=== PATIENT | female | born 1935 | race Caucasian/White ===

== ENCOUNTER 2017-03-04 13:38 | Outpatient (CLI) | payer OTHER ==
[~2017-03-04 13:38] MED LIST: GABA-531 PO; LISI-652 PO; LOVA20TA2 PO
== END 2017-03-04 18:54 | disposition home or self-care (01) ==
LOC: SMA 13:38
PROVIDERS: ATTEND Family Medicine
DX: Z12.31 Encounter for screening mammogram for malignant neoplasm of breast (principal)
CPT/HCPCS: 77067

== ENCOUNTER 2018-07-07 10:14 | Outpatient (CLI) | payer OTHER | END 2018-07-07 21:16 | disposition home or self-care (01) | LOC: SMA 10:14 | PROVIDERS: ATTEND Family Medicine | DX: Z12.31 Encounter for screening mammogram for malignant neoplasm of breast (principal) | CPT/HCPCS: 77067 ==

== ENCOUNTER 2018-12-13 10:51 | Emergency (ER) | payer OTHER, MEDICAID ==
[~2018-12-13] VITALS: Ht 162.6 cm; Wt 74.4 kg
[2018-12-13 11:02] VITALS: BP_SYST 146
--- NOTE | 2018-12-13 11:10 | NUR ---
Patient to ER bed 5 to gown for evaluation, equipment monitor phototypesetting. Side rails up. Report given to Yuliana AMEZQUITA.
--- NOTE | 2018-12-13 11:40 | NUR ---
Note undone in EDM - 12/13/18 at 1159 by SDEDTD Patient presented to ER with right side nek & shoulder pain. Patient A&Ox4, ambulatory to ER, afebrile, skin pink & warm, cap refil <3sec, pain 10/09 to neck, denies N/V/D. Patient states Thursday she had near syncope episode causing fall, denies head trauma, denies KO. Patient staes she has treated at home with Naprosyn OTC for arthritis pain.
--- NOTE | 2018-12-13 11:40 | NUR ---
Patient presented to ER with right side neck & shoulder pain. Patient A&Ox4, ambulatory to ER, afebrile, skin pink & warm, cap refil <3sec, pain 10/09 to neck, denies N/V/D. Patient states Thursday she had near syncope episode causing fall, denies head trauma, denies KO. Patient staes she has treated at home with Naprosyn OTC for arthritis pain.
--- NOTE | 2018-12-13 11:45 | NUR ---
ER Dr. Camp at bedside examining patient.
[2018-12-13] MEDS ORDERED: HYDROcodone/ACETAMIN 5-325 MG TAB (NORCO/ VICODIN) PO ONE (12:00)
[2018-12-13] MEDS ORDERED: IBUPROFEN 600 MG TABLET PO ONE (12:00)
[2018-12-13 12:28] LABS: BASOPHILS # (AUTO) 0.1 K/uL (0.0-0.2); BASOPHILS % (AUTO) 1.1 % (0.0-2.0); EOSINOPHILS # (AUTO) 0.2 K/uL (0.0-0.4); EOSINOPHILS % (AUTO) 3.8 % (0.0-4.0); HEMATOCRIT 42.5 % (36-48); HEMOGLOBIN 14.3 g/dL (12.0-16.0); LYMPHOCYTES # (AUTO) 1.7 K/uL (1.0-5.5); MEAN CORPUSCULAR HEMOGLOBIN 30 pg (27-31); MEAN CORPUSCULAR HGB CONC 34 % (32-36); MEAN CORPUSCULAR VOLUME 90 fL (79.0-98.0); MONOCYTES # (AUTO) 0.4 K/uL (0.0-1.0); MONOCYTES % (AUTO) 8.5 % (1.7-9.3); NEUTROPHILS # (AUTO) 2.8 K/uL (1.8-7.7); NEUTROPHILS % (AUTO) 53.6 % (40.0-70.0); PLATELET COUNT (AUTO) 221 K/uL (130-430); RED BLOOD CELL COUNT(AUTO) 4.72 MIL/uL (4.2-6.2); RED CELL DISTRIBUTION WIDTH 13.2 % (9.0-15.0); WHITE BLOOD COUNT (AUTO) 5.2 K/uL (4.8-10.8)
[2018-12-13 12:44] LABS: PROTHROMBIN TIME 9.9 SECS (9.5-12.5)
[2018-12-13 12:48] LABS: ANION GAP 5 (5-15); CHLORIDE 107 mmol/L (98-107); CREATININE 0.75 mg/dL (0.55-1.30); GLUCOSE 98 mg/dL (70-99); POTASSIUM 4.1 mmol/L (3.5-5.1); SODIUM SERUM 141 mmol/L (136-145); UREA NITROGEN, BLOOD 17 mg/dL (8-21)
[2018-12-13 12:53] LABS: ALANINE AMINOTRANSFERASE 19 U/L (12-78); ALBUMIN 4.2 g/dL (3.4-4.8); ASPARTATE AMINOTRANSFERASE 17 U/L (10-37); TOTAL BILIRUBIN 0.5 mg/dL (0.0-1.0)
[2018-12-13 13:04] VITALS: BP_SYST 138
--- NOTE | 2018-12-13 13:05 | NUR ---
Patient given written and verbal discharge instructions and verbalizes understanding. ER MD discussed with patient the results and treatment provided. Patient in stable condition. ID arm band removed. Rx of Motrin and Soma given. Patient educated on pain management and to follow up with PMD. Pain Scale 2/10 tolerable for pt. Opportunity for questions provided and answered. Medication side effect fact sheet provided.
== END 2018-12-13 13:04 | disposition home or self-care (01) ==
LOC: SED 10:51
DX: S13.4XXA Sprain of ligaments of cervical spine, initial encounter (principal); R51 Headache; K21.9 Gastro-esophageal reflux disease without esophagitis; I10 Essential (primary) hypertension; E03.9 Hypothyroidism, unspecified; E78.00 Pure hypercholesterolemia, unspecified; Z90.49 Acquired absence of other specified parts of digestive tract; Z90.710 Acquired absence of both cervix and uterus; Z88.8 Allergy status to other drugs, medicaments and biological substances; W19.XXXA Unspecified fall, initial encounter; Y93.89 Activity, other specified; Y92.89 Other specified places as the place of occurrence of the external cause; Y99.8 Other external cause status
CPT/HCPCS: 36415; 72125-TC; 80053; 85025; 85610-TC; 85730-TC; 99284

== ENCOUNTER 2019-01-21 10:07 | Emergency (ER) | payer OTHER, MEDICAID ==
[~2019-01-21] VITALS: Ht 160 cm; Wt 73.5 kg
[2019-01-21 10:07] VITALS: BP_SYST 142
[2019-01-21] MEDS ORDERED: AMOXICILLIN/CLAVULANATE POTASSIUM 875 MG TABLET PO ONE (10:45)
[2019-01-21] MEDS ORDERED: ALBUTEROL SULFATE 0.083% 2.5 MG/3 ML VIAL.NEB INH ONE (10:45)
[2019-01-21 11:35] VITALS: BP_SYST 142
== END 2019-01-21 11:33 | disposition home or self-care (01) ==
LOC: SED 10:07
DX: J20.9 Acute bronchitis, unspecified (principal); I10 Essential (primary) hypertension; K21.9 Gastro-esophageal reflux disease without esophagitis; Z90.49 Acquired absence of other specified parts of digestive tract; Z88.8 Allergy status to other drugs, medicaments and biological substances; Z79.899 Other long term (current) drug therapy
CPT/HCPCS: 71045; 94640; 99283; J7613

== ENCOUNTER 2023-10-24 14:02 | Emergency (ER) | payer OTHER, MEDICAID ==
[~2023-10-24] VITALS: Ht 157.5 cm; Wt 72.1 kg
[~2023-10-24 14:02] MED LIST changes: -GABA-531 PO; -LISI-652 PO; +LISI20TA30 PO; +PRO40 PO; +SYN50 PO
[2023-10-24 14:13] VITALS: BP_SYST 152; PULSE 73; RESP 16; TEMP 97.6; O2SAT 96
[2023-10-24 14:50] LABS: BILIRUBIN,URINE NEGATIVE (NEGATIVE); BLOOD, URINE 1+ (NEGATIVE); CLARITY/URINE CLEAR (CLEAR); COLOR,URINE YELLOW (YELLOW); GLUCOSE,URINE NEGATIVE (NEGATIVE); KETONES,URINE NEGATIVE (NEGATIVE); LEUKOCYTE ESTERASE ,URINE 1+ (NEGATIVE); NITRITE, URINE NEGATIVE (NEGATIVE); PROTEIN URINE NEGATIVE (NEGATIVE); UROBILINOGEN,URINE 0.2 (0.2-1.0)
[2023-10-24 15:02] LABS: BACTERIA,URINE RARE /HPF (None Seen)
[2023-10-24 16:17] LABS: BASOPHILS # (AUTO) 0.1 K/uL (0.0-0.2); BASOPHILS % (AUTO) 0.6 % (0.0-2.0); EOSINOPHILS # (AUTO) 0.1 K/uL (0.0-0.4); EOSINOPHILS % (AUTO) 1.1 % (0.0-4.0); HEMATOCRIT 41.2 % (36-48); HEMOGLOBIN 14.4 g/dL (12.0-16.0); LYMPHOCYTES # (AUTO) 1.7 K/uL (1.0-5.5); LYMPHOCYTES % (AUTO) 15.5 % (20.5-51.5); MEAN CORPUSCULAR HEMOGLOBIN 32 pg (27-31); MEAN CORPUSCULAR HGB CONC 35 % (32-36); MEAN CORPUSCULAR VOLUME 92 fL (79.0-98.0); MONOCYTES # (AUTO) 0.8 K/uL (0.0-1.0); MONOCYTES % (AUTO) 7.2 % (1.7-9.3); NEUTROPHILS # (AUTO) 8.1 K/uL (1.8-7.7); NEUTROPHILS % (AUTO) 75.6 % (40.0-70.0); PLATELET COUNT (AUTO) 286 K/uL (130-430); WHITE BLOOD COUNT (AUTO) 10.7 K/uL (4.8-10.8)
[2023-10-24 16:31] LABS: PROTHROMBIN TIME 10.4 SECS (9.5-12.5)
[2023-10-24 16:35] LABS: ALANINE AMINOTRANSFERASE 21 U/L (12-78); ALBUMIN 3.7 g/dL (3.4-4.8); ANION GAP 6 (5-15); ASPARTATE AMINOTRANSFERASE 17 U/L (10-37); CALCIUM 8.9 mg/dL (8.4-11.0); CARBON DIOXIDE 29 mmol/L (23-29); CHLORIDE 104 mmol/L (98-107); CREATININE 0.74 mg/dL (0.55-1.30); GLUCOSE 98 mg/dL (74-106); POTASSIUM 4.5 mmol/L (3.5-5.1); SODIUM SERUM 139 mmol/L (136-145); TOTAL BILIRUBIN 0.3 mg/dL (0.0-1.0); TOTAL PROTEIN, SERUM 7.6 g/dL (6.4-8.3); UREA NITROGEN, BLOOD 29 mg/dL (8-21)
[2023-10-24 16:45] LABS: AMYLASE 106 U/L (0-100); BILIRUBIN,DIRECT 0.1 mg/dL (0.0-0.3); LIPASE 55 U/L (16-77)
[2023-10-24] MEDS ORDERED: IBUP-2018 PO (17:18)
[2023-10-24 17:30] VITALS: BP_SYST 148; PULSE 73; O2SAT 97
== END 2023-10-24 17:30 | disposition home or self-care (01) ==
LOC: SED 14:02
DX: R10.30 Lower abdominal pain, unspecified (principal); K21.9 Gastro-esophageal reflux disease without esophagitis; I10 Essential (primary) hypertension; E03.9 Hypothyroidism, unspecified; E78.00 Pure hypercholesterolemia, unspecified; Z91.041 Radiographic dye allergy status; Z88.8 Allergy status to other drugs, medicaments and biological substances; Z79.899 Other long term (current) drug therapy; Z79.2 Long term (current) use of antibiotics
CPT/HCPCS: 36415; 80048; 80076; 81000; 81001; 81015; 82150; 83605; 83690; 85025; 85610; 85730; 87086; 99284